=== PATIENT | female | born 2000 | race Caucasian/White ===

== ENCOUNTER 2024-03-13 12:00 | Emergency (ER) | payer OTHER ==
[~2024-03-13] VITALS: Ht 157.5 cm; Wt 118.9 kg
[2024-03-13 12:11] VITALS: BP 145/99; PULSE 78; RESP 20; TEMP 98.7; O2SAT 99
[2024-03-13] MEDS: IBUPROFEN 400 MG TABLET PO ONE (13:30)
[2024-03-13] MEDS: ACETAMINOPHEN 325 MG TABLET PO ONE (13:31)
== END 2024-03-13 15:02 | disposition home or self-care (01) ==
LOC: EMS 12:00
DX: S90.02XA Contusion of left ankle, initial encounter (principal); S90.01XA Contusion of right ankle, initial encounter; I10 Essential (primary) hypertension; W10.8XXA Fall (on) (from) other stairs and steps, initial encounter; Y93.89 Activity, other specified; Y92.89 Other specified places as the place of occurrence of the external cause; Y99.0 Civilian activity done for income or pay
CPT/HCPCS: 99283